=== PATIENT | female | born 1975 | race American Indian/Alaskan Native ===

== ENCOUNTER 2017-03-17 09:20 | Outpatient (CLI) | payer BC ==
--- NOTE | 2017-03-17 14:44 | Mammography Report ---
BILATERAL DIGITAL SCREENING MAMMOGRAM with CAD : 03/17/17 09:20:00 CLINICAL: Routine screening. COMPARISON:08/20/14 FINDINGS: The breasts are heterogeneously dense, which may obscure small masses. No mass, architectural distortion or suspicious calcifications. IMPRESSION: No mammographic evidence of malignancy. BI-RADS CATEGORY: 2 -- Benign RECOMMENDATION: Routine mammographic screening in one year. COMMENT: Patient follow-up letters are generated by our [employer] application.
== END 2017-03-17 09:21 | disposition home or self-care (01) ==
LOC: SPVWC 09:20
PROVIDERS: ATTEND Internal Medicine
DX: Z12.31 Encounter for screening mammogram for malignant neoplasm of breast (principal)
CPT/HCPCS: 77067; G0202

== ENCOUNTER 2018-04-06 13:23 | Outpatient (CLI) | payer BC ==
--- NOTE | 2018-04-06 15:42 | Mammography Report ---
BILATERAL DIGITAL SCREENING MAMMOGRAM with CAD : 04/06/18 13:23:00 CLINICAL: Routine screening. COMPARISON:03/17/17 and 08/20/14 FINDINGS: The breasts are heterogeneously dense, which may obscure small masses. No mass, architectural distortion or suspicious calcifications. IMPRESSION: No mammographic evidence of malignancy. BI-RADS CATEGORY: 2 -- Benign RECOMMENDATION: Routine mammographic screening in one year. COMMENT: Patient follow-up letters are generated by our [employer] application.
== END 2018-04-06 13:24 | disposition home or self-care (01) ==
LOC: SPVWC 13:23
PROVIDERS: ATTEND Obstetrics & Gynecology
DX: Z12.31 Encounter for screening mammogram for malignant neoplasm of breast (principal)
CPT/HCPCS: 77067

== ENCOUNTER 2020-03-12 07:06 | Observation (INO) | payer BC ==
[2020-03-09 12:05] LABS: Hematocrit 36.8 % (30.3-42.9); Hemoglobin 12.2 gm/dl (10.1-14.3); Mean Corpuscular HGB Conc 33 % (30-34); Mean Corpuscular Volume 84 fl (79-97); Platelet Count 258 K/mm3 (140-440); Red Cell Distribution Width 14.7 % (13.2-15.2)
--- NOTE | 2020-03-09 12:15 | Anesthesia Consultation ---
Anesthesia Consult and Med Hx Date of service: 03/12/20 - Airway Anesthetic Teeth Evaluation: Good ROM Head & Neck: Adequate Mental/Hyoid Distance: Adequate Mallampati Class: Class II Intubation Access Assessment: Probably Good - Pre-Operative Health Status ASA Pre-Surgery Classification: ASA2 Proposed Anesthetic Plan: General Nerve Block: TAP - Pulmonary Hx Respiratory Symptoms: No (+2FS) - Central Nervous System Hx Psychiatric Problems: No - Gastrointestinal Hx Gastroesophageal Reflux Disease: No - Hematic Hx Anemia: No (NO BLOOD!) Hx Sickle Cell Disease: Yes (Trait only) - Other Systems Hx Alcohol Use: Yes (Occas) Hx Cancer: No Hx Obesity: Yes
[2020-03-09 12:27] LABS: BUN/Creatinine Ratio 14; Blood Urea Nitrogen 11 mg/dL (7-17); Calcium 9.4 mg/dL (8.4-10.2); Hemolysis Index 3
[2020-03-09 13:35] LABS: Large Platelets Few; Platelet Estimate Consistent w Auto; RBC Morphology Normal; Total Cells Counted 100
--- NOTE | 2020-03-11 12:52 | History and Physical Report ---
History of Present Illness Date of examination: 03/09/20 History of present illness: This is a 44 years old female who presents with uterine fibroids. She complains of pelvic pain and menorrhagia, She complains of heavy bleeding and dysmenorrhea, but denies irregular menses, mid-cycle spotting, lack of menses, clotting, history of ovarian cysts, history of thyroid disease, history of PCOS, history of bleeding disorder, lightheadedness. Patient's work up has included hysterosonogram with a benign endometrial biopsy and revealed leiomyomata. Patient's symptoms when present disrupts her normal daily activities Patient desires definitive treatment Vital Signs: Patient Profile: 44 Years Old Female LMP: 02/17/2020 Height: 68 inches (172.72 cm) Weight: 206 pounds BMI: 31.32 Temp: 97.6 degrees F BP sittin / 80 (left arm) Menstrual History: LMP (date): 02/17/2020 On BCP's at conception: no Current Method of Contraception: None Date of Last Pap Smear: 04/08/2019 Past History : 2 Term Births: 2 Premature Births: 0 Living Children: 2 Para: 2 Mult. Births: 0 Prev : 0 Prev. attempt? 0 Aborta: 0 Elect. Ab: 0 Spont. Ab: 0 Ectopics: 0 [employer] History Operations: Tubal Ligation (2004) Abnormal PAP: negative Uterine Anomaly: positive fibroids Infection History HIV Risk Eval: no Personal hx. of genital herpes: no Hx of STD: None Current Allergies (reviewed today): * PENICILLIN (Critical) Past Medical History: JEHOVAH WITNESS Achilles tendinitis Anal fissure Fibroids Past Surgical History: Tubal Ligation (2004) Family History Summary: Other Family Member - Has Family History of Ovarian Cancer - Entered On: 03/24/2017 Other Family Member - Has No Family History of Colon Cancer - Entered On: 03/24/2017 Other Family Member - Has No Family History of Breast Cancer - Entered On: 03/24/2017 Other Family Member - Has Family History of Hypertension - Entered On: 03/24/20 17 Other Family Member - Has Family History of Diabetes - Entered On: 03/24/2017 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 Risk Factors: Smoked Tobacco Use: Never smoker Smokeless Tobacco Use: Never Passive smoke exposure: no Drug use: no HIV high-risk behavior: no Caffeine use: 0 drinks per day Alcohol use: yes Type: occ Exercise: yes Times per week: 3 Seatbelt use: 100 % PAP Smear History: Date of Last PAP Smear: 04/08/2019 Review of Systems General Complains of fatigue. Denies fever, chills, sweats, anorexia, weakness, malaise, weight loss and sleep disorder. Complains of menorrhagia and painful periods. Denies vaginal discharge, incontinence, dysuria, hematuria, urinary frequency, amenorrhea, abnormal vaginal bleeding, pelvic pain, genital sores, decreased libido, painful sex, urinary urgency, hot flashes, vaginal dryness, vaginal itching and vaginal odor. CV Denies chest pains, palpitations, syncope, dyspnea on exertion, orthopnea, PND and peripheral edema. Resp Denies cough, dyspnea at rest, excessive sputum, hemoptysis, wheezing and pleurisy. GI Denies nausea, vomiting, diarrhea, constipation, change in bowel habits, abdominal pain, melena, hematochezia, jaundice, gas/bloating, indigestion/heartburn, dysphagia and odynophagia. Breast Denies left breast lump, right breast lump, nipple discharge, bloody discharge from nipple, breast pain, abnormal mammogram and breast enlargement. Psych Denies depression, anxiety, irritability and mood swings. Past History Past Medical History: other (SEE HPI FOR DETAILS) Past Surgical History: Other (SEE HPI FOR DETAILS) Social history: , full code, other (SEE HPI FOR DETAILS) Family history: other (SEE HPI FOR DETAILS) Medications and Allergies Allergies Allergy/AdvReac Type Severity Reaction Status Date / Time Penicillins Allergy Rash Verified 02/28/20 10:32 Home Medications Medication Instructions Recorded Confirmed Last Taken Type No Known Home Medications [No 02/28/20 02/28/20 Unknown History Reported Home Medications] Active Meds: Active Medications Acetaminophen (Tylenol) 1,000 mg PO ONCE VAUGHN Stop: 03/12/20 23:00 Celecoxib (Celebrex) 400 mg PO PREOP NR Stop: 03/12/20 23:00 Fentanyl (Sublimaze) 100 mcg IV ONCE VAUGHN Stop: 03/12/20 23:00 Gabapentin (Gabapentin) 600 mg PO PREOP NR Stop: 03/12/20 23:00 Gentamicin Sulfate 140 mg/ (Sodium Chloride) 103.5 mls @ 200 mls/hr IV PREOP S CH; Protocol Stop: 03/12/20 23:00 Clindamycin HCl (Cleocin 900 Mg/50 Ml) 900 mg in 50 mls @ 100 mls/hr IV PREOP NR; Protocol Stop: 03/12/20 23:00 Lactated Ringer's (Lactated Ringers) 1,000 mls @ 125 mls/hr IV DIRECT VAUGHN Magnesium Oxide (Mag-Ox) 400 mg PO ONCE VAUGHN Stop: 03/12/20 23:30 Midazolam HCl (Versed) 2 mg IV PREOP NR Stop: 03/12/20 23:59 Review of Systems Constitutional: other (SEE HPI FOR DETAILS) Exam - Physical Exam Narrative exam: HEENT: normocephalic, no lesions or deformities Skin no significant abnormal lesions or rashes Breasts: skin/areolae normal, no masses, no nipple discharge, no erythema/warmth/tenderness, and axillae normal. CV: regular, normal S1-S2, no murmur, no rub, no gallop Abdomen: Obese, normal bowel sounds, soft, nontender, no HSM Neuro: no gross anomalities Extremities: no clubbing, cyanosis, or edema [employer] Exams Vulva/Vagina: No lesions, normal BUS, normal rugae Cervix: No lesions; no cervical motion tenderness Uterus: enlarged uterus 8 - 10 weeks size Adnexae: no masses or tenderness Rectovaginal: exam defered - Constitutional Vitals: Temp Pulse Resp BP Pulse Ox 99.4 F 78 20 130/75 99 03/09/20 11:35 03/09/20 11:35 03/09/20 11:35 03/09/20 11:35 03/09/20 11:35 Results - Labs CBC & Chem 7: 03/09/20 11:45 03/09/20 11:45 Assessment and Plan - Patient Problems (1) Intramural leiomyoma of uterus Status: Acute Plan to address problem: Diagnosis explained to patient . Questions answered. Discussed with patient various medical, surgical and radiological therapies common for treatment including expectant management, myomectomy hysterectomy and uterine artery embolization Patient desires definitive treatment Patient desires hysterectomy Discussed risks and benefits of laparotomy, laparoscopy, vaginal and robotic assisted approaches for hysterectomies .Patient desires robotic assisted total hysterectomy. Consent reviewed and signed . The risks and alternatives for this surgery were reviewed with the patient. Discuss the risks of the surgery including infection, bleeding possibly heavy enough to require a blood transfusion, possible damage to bowel, bladder or ureter. Patient understand that this surgery with make her sterile.Patient understands if her ovaries are r emoved she will become menopausal. Also if unable to complete robitcally a laparotomy may be required. Patient understands and desires to proceed. (2) Menorrhagia with regular cycle Status: Acute Plan to address problem: Probably secondary to # 1 (3) Secondary dysmenorrhea Status: Acute Plan to address problem: Probably secondary to # 1 (4) Refusal of blood transfusions as patient is Syn[employer] Status: Chronic Plan to address problem: Patient states she would rather than receive a blood transfusion
[~2020-03-12 07:06] MED LIST: ACETAMINOPHEN 500 MG TAB PO SCH; CELECOXIB 200 MG CAP PO NR; GABAPENTIN 300 MG CAP PO NR; GENTAMICIN 140 MG in SODIUM CHLORIDE 0.9% 100 ML IV SCH; LACTATED RINGERS 1,000 ML IV SCH; MAGNESIUM OXIDE 400 MG TAB PO SCH; MIDAZOLAM 2 MG/2 ML INJ IV NR; fentaNYL 100 MCG/2 ML INJ IV SCH
[2020-03-12] MEDS ORDERED: BUPIVACAINE/PF (0.25%) 2.5 MG/ML 30 ML VIAL INFILTRATI ONE (07:45)
[2020-03-12] MEDS ORDERED: dexAMETHasone 4 MG/ML VIAL ONE (07:46)
--- NOTE | 2020-03-12 07:46 | Anesthesia Day of Surgery ---
Anesthesia Day of Surgery - Day of Surgery Patient Examined: Yes Patient H&P Reviewed: Yes Patient is NPO: Yes
[2020-03-12] MEDS ORDERED: ROCURONIUM 50 MG/5 ML INJ IV ONE (08:09)
[2020-03-12] MEDS ORDERED: dexAMETHasone 20 MG/5 ML VIAL ONE (08:09)
[2020-03-12] MEDS ORDERED: ONDANSETRON 4 MG/2 ML INJ ONE (08:09)
[2020-03-12] MEDS ORDERED: LIDOCAINE MPF (2%) 20 MG/1 ML VIAL 5 ML ONE (08:09)
[2020-03-12] MEDS ORDERED: HYDROmorphone 1 MG/1 ML INJ ONE (08:09)
[2020-03-12] MEDS ORDERED: propofoL 200 MG/20 ML VIAL IV ONE (08:10)
[2020-03-12] MEDS ORDERED: NEOMY 40 MG/POLYMYXIN B 200,000 UNITS/ML (GU) AMPULE IR ONE ×2 (08:13→09:38)
[2020-03-12] MEDS ORDERED: KETAMINE/STERILE WATER 50 MG/ML SYRINGE ONE (08:40)
[2020-03-12] MEDS ORDERED: HYDROmorphone 1 MG/1 ML INJ IV PRN ×2 (09:35)
[2020-03-12] MEDS ORDERED: ONDANSETRON 4 MG/2 ML INJ IV PRN ×2 (09:35→12:25)
[2020-03-12] MEDS ORDERED: SODIUM CHLORIDE 0.9% IRRIG SOLN 2000 ML IR ONE (09:38)
[2020-03-12] MEDS ORDERED: SODIUM CHLORIDE 0.9% IRR 1,500 ML BOTTLE IR ONE (09:59)
[2020-03-12] MEDS ORDERED: NEOSTIGMINE 10MG/10 ML INJ MDV ONE (10:26)
[2020-03-12] MEDS ORDERED: GLYCOPYRROLATE 0.4 MG/2 ML INJ ONE (10:26)
[2020-03-12] MEDS ORDERED: PHENYLEPHRINE/NS 1,000 MCG/10 ML SYRINGE (OR USE) IV ONE (10:29)
[2020-03-12] MEDS ORDERED: KETOROLAC 30 MG/1 ML INJ ONE ×2 (11:04→15:58)
[2020-03-12] MEDS ORDERED: KETOROLAC 30 MG/1 ML INJ IV ONE ×2 (11:09→13:30)
--- NOTE | 2020-03-12 11:14 | Operative Report ---
Operative Report Operative Report: Date of procedure: March 12, 2020 Pre-operative diagnosis: Leiomyomata with menorrhalgia and dysmenorrhea Post-operative diagnosis: Same Procedure name(s):Robotic Assisted Total Hysterectomy with bilateral salpingectomy Surgeon: Micheal Cordero MD Boat Cleaner: Swati Smallwood, certified phlebotomy technician Anesthesia: General EBL: 50 cc Complications: None Findings: Patient with a uterus approximately 8weeks to 10 weeks in size normal ovaries bilaterally fallopian tubes are normal with both being interrupted with Falope-Rings Specimen(s): Uterus with bilateral fallopian tubes Procedure: Patient was brought to the operating room where general anesthesia was induced without difficulty. Patient was placed in the dorsal lithotomy position. Prepped and draped in the usual sterile manner for robotic procedure. Gann catheter was placed without difficulty. Speculum was placed in the vagina. A large V-Care Uterine manipulator was placed without difficulty. Attention was now switched to the patient's abdomen. A vertical supra-umbilicus incision was made with a scalpel. A 10-12 trocar was placed in this incision under direct visualization. Intra-abdominal placement was verified with no evidence of internal organ damage. The patient pelvic findings were noted as above. It was determined that the patient was a candidate for robotic procedure. On both sides the umbilical incision at about 8 cm, incisions were made for robotic trocars. Each robotic trocar was placed under direct visualization with no evidence of internal organ damage. One 5 mm trocar was placed 2 fingerbreadths above the right iliac crest. A 5 mm camera was placed in the right lower quadrant trocar, the 10-12 trocar was removed and a Reji Donato laparoscopic port closure device was placed through this incision under direct visualization with no evidence of internal organ damage. The port was then replaced. At this time the patient was placed in extreme Trendelenburg. The da Edna robot was then docked on the patient's left side. The trocars connected to the robot appropriately robotic instruments were placed under direct visualization no evidence of internal organ damage.. At this time I took my place under the robotic operating main. Starting on the patient's right side the ureter was identified and found to be out of the operative field. Using the robotic vessel sealer the mesosalpinx under the fallopian tube were cauterized and cut starting from the distal end. Utero-ovarian complex was then cauterized and cut. This was followed by cauterizing and cutting the right fallopian tube and right round ligament. The broad ligament was then opened. The bladder flap was formed anteriorly. The posterior broad ligament was then excised. The uterine vessels were skeletonized. The ureter was clearly seen out of the operative field. The bladder was pushed away from the anterior uterus. The right uterine vessels were then cauterized and cut. Attention was then switched to the patient's left side. The same procedure was repeated on the left side with p erform the salpingectomy followed by isolating the uterine vessels cauterized and cutting and completing the bladder flap from the left side. At this time the uterus was appearing very cyanotic. After inspecting the bladder flap to insured no evidence of bladder injury, the colpotomy was then started. Incision started at 6:00 until the V-Care could be seen. This incision was extended from 6:00 to 9:00. Then from 6:00 to 3:00. Then from 9:00 to 12:00. This incision was extended from 3:00 to 12:00. At this time colpotomy was complete with no evidence of adjacent organ damage. The oral surgery technician remove the uterus from through the colpotomy site. The vaginal cuff was irrigated and cauterized and found to be hemostatic. The cuff was closed with roboticly using 0 V- Lock suture. This closure was hemostatic after irrigation and Bovie. All pedicles were inspected and found to be hemostatic. The ureters were identified bilaterally and found to be functioning normal. The patient had clear urine in the Gann catheter with no evidence of mixture with blood. Bree was placed on the cuff and pedicles for postoperative hemostasis . All instruments were then removed. The large trocar sites were closed in layers 2-0 Vicryl and 4-0 Monocryl. The smaller incisions were closed subcuticularly with 4-0 Monocryl. Dermabond was placed over the skin incisions. The patient tolerated procedure well. She was awakened in the operating room and accompanied to the recovery room in good condition.
--- NOTE | 2020-03-12 11:44 | Post Anesthesia Evaluation ---
- Post Anesthesia Evaluation Patient Participated: Yes Airway Patent: Yes Stable Respiratory Function: Yes Nausea/Vomiting: No Temp > 96.8F: Yes Pain Manageable: Yes Adequeate Hydration: Yes Anesthesia Complications: No Block Receding Appropriately: Yes Patient on Ventilator: No
[2020-03-12] MEDS ORDERED: MAGNESIUM HYDROXIDE (MOM) ORAL LIQD UDC PO PRN (12:25)
[2020-03-12] MEDS ORDERED: HYDROcodone/ACETAMINOPHEN 5-325 MG TAB PO PRN (12:25)
[2020-03-12] MEDS ORDERED: D5W/LACTATED RINGERS 1,000 ML IV SCH (12:25)
[2020-03-12] MEDS ORDERED: ACETAMINOPHEN 325 MG TAB PO PRN (12:25)
[2020-03-12 15:52] LABS: Hematocrit 34.7 % (30.3-42.9); Hemoglobin 11.3 gm/dl (10.1-14.3)
[2020-03-12] MEDS: CLINDAMYCIN 600 MG/50 mL 600 MG/50 ML BAG IV SCH (15:56)
--- NOTE | 2020-03-12 18:20 | Progress Note ---
Assessment and Plan - Patient Problems (1) Intramural leiomyoma of uterus Current Visit: No Status: Acute (2) Menorrhagia with regular cycle Current Visit: No Status: Acute (3) Secondary dysmenorrhea Current Visit: No Status: Acute (4) Refusal of blood transfusions as patient is Islam Current Visit: No Status: Chronic (5) Status post hysterectomy Current Visit: Yes Status: Acute Plan to address problem: Day of surgery. Discuss operative findings with patient and questions answered. Patient without fever. Will ambulate in halls this evening. Good urine ou tput. We will continue routine postoperative care. (6) Status post robot-assisted surgical procedure Current Visit: Yes Status: Acute Plan to address problem: Patient able to tolerate diet at this point. He was very uncomfortable with going home. We will treat with antiemetics we will continue to watch overnight. (7) Nausea after anesthesia Current Visit: Yes Status: Acute Qualifiers: Encounter type: initial encounter Qualified Code(s): T88.59XA - Other complications of anesthesia, initial encounter; R11.0 - Nausea Plan to address problem: Patient able to tolerate diet at this point. He was very uncomfortable with going home. We will treat with antiemetics. (8) Dizziness Current Visit: Yes Status: Acute Subjective Date of service: 03/12/20 Patient Reports: Positive: feels better (Patient states she had dizziness earlier but that has improved), still having pain, tolerating liquids well, voiding w/o difficulty, no flatus, nausea (Patient says she feels very uncomfortable and feels like she is about to throw up), afebrile Objective Vital Signs - 12hr 03/12/20 03/12/20 03/12/20 07:05 07:15 07:35 Temperature 97.7 F 97.7 F Pulse Rate 100 H 100 H Respiratory 20 20 20 Rate Respiratory Rate [Abdomen] Blood Pressure 123/77 123/77 Blood Pressure [Right] O2 Sat by Pulse 100 100 Oximetry 03/12/20 03/12/20 03/12/20 07:50 07:51 07:57 Temperature Pulse Rate 86 84 Respiratory 17 12 17 Rate Respiratory Rate [Abdomen] Blood Pressure 109/66 109/65 Blood Pressure [Right] O2 Sat by Pulse 100 100 Oximetry 03/12/20 03/12/20 03/12/20 08:02 08:07 08:12 Temperature Pulse Rate 81 86 85 Respiratory 17 16 17 Rate Respiratory Rate [Abdomen] Blood Pressure 115/71 112/72 104/63 Blood Pressure [Right] O2 Sat by Pulse 100 100 100 Oximetry 03/12/20 03/12/20 03/12/20 08:17 08:21 08:38 Temperature Pulse Rate 85 85 Respiratory 14 15 16 Rate Respiratory Rate [Abdomen] Blood Pressure 100/66 106/66 Blood Pressure [Right] O2 Sat by Pulse 100 100 Oximetry 03/12/20 03/12/20 03/12/20 10:51 10:55 11:00 Temperature 96.7 F L Pulse Rate 65 66 66 Respiratory 15 16 16 Rate Respiratory Rate [Abdomen] Blood Pressure 100/57 106/61 109/64 Blood Pressure [Right] O2 Sat by Pulse 100 100 100 Oximetry 03/12/20 03/12/20 03/12/20 11:15 11:20 11:30 Temperature 96.9 F L Pulse Rate 65 69 Respiratory 16 16 Rate Respiratory Rate [Abdomen] Blood Pressure 114/64 110/63 Blood Pressure [Right] O2 Sat by Pulse 100 99 Oximetry 03/12/20 03/12/20 03/12/20 11:45 12:50 13:18 Temperature 97.6 F Pulse Rate 79 81 Respiratory 16 20 20 Rate Respiratory Rate [Abdomen] Blood Pressure 108/70 Blood Pressure 112/67 [Right] O2 Sat by Pulse 98 100 Oximetry 03/12/20 03/12/20 03/12/20 13:24 15:59 17:34 Temperature 98.2 F Pulse Rate 98 H Respiratory 20 18 Rate Respiratory 20 Rate [Abdomen] Blood Pressure 124/75 Blood Pressure [Right] O2 Sat by Pulse 99 Oximetry - General physical appearance well developed - Respiratory normal expansion - Abdomen soft, tender (Appropriate postop), bowel sounds hypoactive, surgical scars (In tact) - Psychiatric oriented to time, oriented to person, oriented to place, speech is normal, memory intact - Labs 03/12/20 15:11 03/09/20 11:45
[2020-03-12] MEDS: KETOROLAC 30 MG/1 ML INJ IV SCH (20:56)
[2020-03-12] MEDS: DOCUSATE SODIUM 100 MG CAP PO SCH (20:59)
[2020-03-13] MEDS: CLINDAMYCIN 600 MG/50 mL 600 MG/50 ML BAG IV SCH (00:09)
[2020-03-13 04:50] LABS: Hematocrit 33.3 % (30.3-42.9); Hemoglobin 10.9 gm/dl (10.1-14.3)
[2020-03-13] MEDS: KETOROLAC 30 MG/1 ML INJ IV SCH (05:44)
[2020-03-13] MEDS: DOCUSATE SODIUM 100 MG CAP PO SCH (10:00)
[2020-03-13] MEDS ORDERED: IBUPROFEN 800 MG TAB PO PRN (10:58)
--- NOTE | 2020-03-13 11:08 | Discharge Summary ---
Providers - Providers Date of Admission: 03/12/20 10:58 Attending physician: TRUE HERNADEZ Primary care physician: DENZEL CHUN Hospitalization - Discharge Diagnoses (1) Intramural leiomyoma of uterus Status: Acute (2) Menorrhagia with regular cycle Status: Acute (3) Secondary dysmenorrhea Status: Acute (4) Refusal of blood transfusions as patient is Islam Status: Chronic (5) Status post hysterectomy Status: Acute (6) Status post robot-assisted surgical procedure Status: Acute (7) Nausea after anesthesia Status: Acute Qualifiers: Encounter type: initial encounter Qualified Code(s): T88.59XA - Other complications of anesthesia, initial encounter; R11.0 - Nausea (8) Dizziness Status: Acute Core Measure Documentation - Palliative Care Palliative Care/ Comfort Measures: Not Applicable Exam - Constitutional Vitals: Temp Pulse Resp BP Pulse Ox 98.8 F 96 H 18 117/71 99 03/13/20 09:28 03/13/20 09:28 03/13/20 09:28 03/13/20 09:28 03/13/20 09:28 Plan Care Plan Goals: CALL OFFICE TO SCHEDULE POST-OPERATIVE APPOINTMENT Call your doctor immediately for: * Fever > 100.5 * Heavy vaginal bleeding ( >1 pad per hour) * Severe persistent headache * Shortness of breath * Reddened, hot, painful area to leg or breast * Drainage or odor from incision. * Keep incision clean and dry at all times and follow doctor's instructions regarding bathing/showering Follow up with: DENZEL CHUN MD [Primary Care Provider] - 7 Days Forms: [facility] Discharge Summary Prescriptions: Ferrous Sulfate [Feosol 325 MG tab] 325 mg PO BID #60 tablet Ibuprofen [Motrin 800 MG tab] 800 mg PO Q6H PRN #30 tablet PRN Reason: Pain oxyCODONE /ACETAMINOPHEN [Percocet 5/325 mg] 1 - 2 tab PO Q6HR PRN #20 tablet PRN Reason: Pain
[2020-03-13] MEDS ORDERED: SIMETHICONE 80 MG CHEW TAB PO PRN (12:15)
[2020-03-13 12:28] VITALS: BP 114/75
--- NOTE | 2020-03-13 13:57 | Short Stay Summary ---
Short Stay Documentation Date of service: 03/12/20 - History Past Medical History: other (SEE HPI FOR DETAILS) Past Surgical History: Other (SEE HPI FOR DETAILS) Social history: , full code, other (SEE HPI FOR DETAILS) - Allergies and Medications Current Medications: Allergies Penicillins Allergy (Verified 02/28/20 10:32) Rash Home Medications Medication Instructions Recorded Confirmed Last Taken Type Ferrous Sulfate [Feosol 325 MG tab] 325 mg PO BID #60 tablet 03/12/20 Unknown Rx Ibuprofen [Motrin 800 MG tab] 800 mg PO Q6H PRN #30 tablet 03/12/20 Unknown Rx oxyCODONE /ACETAMINOPHEN [Percocet 1 - 2 tab PO Q6HR PRN #20 tablet 03/12/20 Unknown Rx 5/325 mg] Active Medications Acetaminophen (Tylenol) 650 mg PO Q4H PRN PRN Reason: Pain MILD(1-3)/Fever >100.5/GONZALEZ Hydrocodone Bitart/Acetaminophen (Shelley 5/325) 2 each PO Q6H PRN PRN Reason: Pain, Moderate (4-6) Docusate Sodium (Colace) 100 mg PO BID [facility] Last Admin: 03/13/20 10:00 Dose: 100 mg Documented by: Dextrose/Lactated Ringer's ([email or web address]) 1,000 mls @ 150 mls/hr IV DIRECT [facility] Last Admin: 03/12/20 12:55 Dose: 150 mls/hr Documented by: Ibuprofen (Ibuprofen) 800 mg PO Q8H PRN PRN Reason: Pain, Mild (1-3) Ketorolac Tromethamine (Toradol) 30 mg IV Q6H [facility] Stop: 03/13/20 20:24 Last Admin: 03/13/20 05:44 Dose: 30 mg Documented by: Magnesium Hydroxide (Milk Of Magnesia) 30 ml PO Q4H PRN PRN Reason: Constipation Ondansetron HCl (Zofran) 4 mg IV Q8H PRN PRN Reason: Nausea And Vomiting Simethicone (Mylicon) 80 mg PO Q6H PRN PRN Reason: Gas pain Sodium Chloride (Sodium Chloride Flush Syringe 10 Ml) 10 ml IV PRN PRN PRN Reason: LINE FLUSH - Physical exam General appearance: well-nourished Integumentary: no rash HEENT: Atraumatic Lungs: Normal air movement Breasts: deferred Heart: Regular rate Gastrointestinal: normoactive bowel sounds, tenderness (Appriately post op), organomegaly Rectal Exam: deferred Extremities: no ischemia, pulses intact Neurological: Normal gait, Normal speech - Brief post op/procedure progress note Date of procedure: 03/12/20 (See dictated operative note for details) - Discharge Diagnoses (1) Intramural leiomyoma of uterus Status: Acute (2) Menorrhagia with regular cycle Status: Acute (3) Secondary dysmenorrhea Status: Acute (4) Refusal of blood transfusions as patient is Zoroastrianism Status: Chronic (5) Status post hysterectomy Status: Acute (6) Status post robot-assisted surgical procedure Status: Acute (7) Nausea after anesthesia Status: Acute Qualifiers: Encounter type: initial encounter Qualified Code(s): T88.59XA - Other complications of anesthesia, initial encounter; R11.0 - Nausea (8) Dizziness Status: Acute Short Stay Discharge Plan Follow up with: DENZEL CHUN MD [Primary Care Provider] - 7 Days Forms: [facility] Discharge Summary Prescriptions: Ferrous Sulfate [Feosol 325 MG tab] 325 mg PO BID #60 tablet Ibuprofen [Motrin 800 MG tab] 800 mg PO Q6H PRN #30 tablet PRN Reason: Pain oxyCODONE /ACETAMINOPHEN [Percocet 5/325 mg] 1 - 2 tab PO Q6HR PRN #20 tablet PRN Reason: Pain
== END 2020-03-13 14:59 | disposition home or self-care (01) ==
LOC: OR 07:06 → OB 10:58
PROVIDERS: ADMIT Obstetrics & Gynecology; ATTEND Obstetrics & Gynecology
DX: D25.1 Intramural leiomyoma of uterus (principal); N92.0 Excessive and frequent menstruation with regular cycle; N94.5 Secondary dysmenorrhea; N94.6 Dysmenorrhea, unspecified; Z53.1 Procedure and treatment not carried out because of patient's decision for reasons of belief and group pressure; Z98.890 Other specified postprocedural states; Z90.710 Acquired absence of both cervix and uterus
CPT/HCPCS: 36415; 58571; 64450; 80048; 84703; 85014; 85018; 85025; 88307; 96361; 96365; 96366; 96375; 96376; A4217; G0378; J1100; J1170; J1580; J1885; J2250; J2370; J2405; J2704; J2710; J3010; J3490; J7120; J7121; S2900; 85007

== ENCOUNTER 2020-04-17 11:10 | Outpatient (CLI) | payer BC ==
--- NOTE | 2020-04-17 14:14 | Mammography Report ---
DIGITAL SCREENING MAMMOGRAM WITH CAD, 04/17/2020 CLINICAL INFORMATION / INDICATION: Routine screening mammography. TECHNIQUE: Digital bilateral 2D mammography was obtained in the craniocaudal and mediolateral obliqu e projections. This examination was interpreted with the benefit of Computer-Aided Detection analysis . COMPARISON: 04/06/2018 FINDINGS: Breast Density: The breasts are heterogeneously dense, which may obscure small masses. No dominant mass, suspicious calcifications, or architectural distortion in either breast. No interval change. IMPRESSION: No mammographic evidence of malignancy. Follow up recommendation: Routine yearly BI-RADS Category 1: Negative. A "normal" or negative report should not discourage follow up or biopsy of a clinically significant f inding. A written summary of these findings will be mailed to the patient. The patient will be entered into a mammography reporting system which will generate a reminder letter for the patient's next appointmen t at the appropriate interval. The [employer] recommends yearly mammograms starting at age 40 and continuing as l yang as a woman is in good health. Breast MRI is recommended for women with an approximate 20-25% or greater lifetime risk of breast cancer, including women with a strong family history of breast or ova jere cancer or who have been treated for Hodgkin's disease. Signer Name: Carlotta Saunders MD Signed: 04/17/2020 2:09 PM Workstation Name: [id number]
== END 2020-04-17 11:11 | disposition home or self-care (01) ==
LOC: SPVWC 11:10
PROVIDERS: ATTEND Obstetrics & Gynecology
DX: Z12.31 Encounter for screening mammogram for malignant neoplasm of breast (principal)
CPT/HCPCS: 77067

== ENCOUNTER 2021-04-23 11:10 | Outpatient (CLI) | payer BC ==
--- NOTE | 2021-04-24 03:01 | Mammography Report ---
DIGITAL SCREENING MAMMOGRAM WITH CAD, 04/23/2021 CLINICAL INFORMATION / INDICATION: Routine screening mammography. SCREENING TECHNIQUE: Digital bilateral 2D mammography was obtained in the craniocaudal and mediolateral obliqu e projections. This examination was interpreted with the benefit of Computer-Aided Detection analysis . COMPARISON: 04/17/20, 04/09/19 FINDINGS: Breast Density: The breasts are heterogeneously dense, which may obscure small masses. No dominant mass, suspicious calcifications, or architectural distortion in either breast. IMPRESSION: No mammographic evidence of malignancy. Follow up recommendation: Routine yearly BI-RADS Category 1: NEGATIVE A "normal" or negative report should not discourage follow up or biopsy of a clinically significant f inding. A written summary of these findings will be mailed to the patient. The patient will be entered into a mammography reporting system which will generate a reminder letter for the patient's next appointmen t at the appropriate interval. The [employer] recommends yearly mammograms starting at age 40 and continuing as l yang as a woman is in good health. Breast MRI is recommended for women with an approximate 20-25% or greater lifetime risk of breast cancer, including women with a strong family history of breast or ova jere cancer or who have been treated for Hodgkin's disease. Signer Name: Yesica Rodriguez MD Signed: 04/24/2021 2:57 AM Workstation Name: [id number]
== END 2021-04-23 11:11 | disposition home or self-care (01) ==
LOC: MAMMO 11:10
PROVIDERS: ATTEND Obstetrics & Gynecology
DX: Z12.31 Encounter for screening mammogram for malignant neoplasm of breast (principal)
CPT/HCPCS: 77067